=== PATIENT | female | born 1980 | race Caucasian/White ===

== ENCOUNTER → 2018-12-11 13:13 | Outpatient (CLI) | payer OTHER, SELFPAY ==
[2013-11-05 13:46] VITALS: BMI 25.0
[2018-12-16 17:04] LABS: HPV Reflexed? NOT INDICATED
== END ==
PROVIDERS: Visit Provider Obstetrics & Gynecology
DX: Z12.4 Encounter for screening for malignant neoplasm of cervix (principal)
CPT/HCPCS: 87624; 88175; G0145

== ENCOUNTER → 2020-03-30 19:00 | Outpatient (CLI) | payer OTHER, SELFPAY | PROVIDERS: PCP Family Medicine; Visit Provider Family Medicine Geriatric Medicine | DX: Z11.59 Encounter for screening for other viral diseases (principal) | CPT/HCPCS: 87426 ==

== ENCOUNTER 2020-04-15 14:42 | Outpatient (RCR) | payer OTHER, SELFPAY ==
[2013-11-05 13:46] VITALS: BMI 25.0
== END 2020-04-24 23:59 ==
LOC: EMPH 14:42
PROVIDERS: PCP Family Medicine; Referring Provider Family Medicine Geriatric Medicine; Visit Provider Family Medicine Geriatric Medicine
DX: Z03.818 Encounter for observation for suspected exposure to other biological agents ruled out (principal)
CPT/HCPCS: 87426

== ENCOUNTER 2021-01-27 14:30 | Outpatient (RCR) | payer OTHER, SELFPAY ==
--- NOTE | 2021-02-01 15:14 | MASS.EVAL ---
Massage Therapy Evaluation: Initial Evaluation Date: 01/27/2021 SUBJECTIVE: Flora is a 40 year old female who was referred to the [facility] facility for a massotherapy evaluation by Dr. Bai with the diagnosis of low backache and neck pain. She presents today with the symptoms of pain, stiffness and tension in the neck, head, mid back, low back, and hips. Flora reports having a past medical history of neck and back pain. She reports having minimal improvement with exercise and stretching over the last few months. OBJECTIVE: Upon observation Flora has poor posture with her head and shoulders forward from the neutral position in sitting and standing. After examination and palpation, I found Flora to have high muscle tension with tenderness and myofascial restrictions in her sub occipitals, levator scapulae, trapezius, rhomboids, scalenes, and thoracic paraspinals. Her QL?s, lumbar paraspinals, piriformis, glute medius and minimus all were very tight with fascial restrictions, tender points and trigger points. The first treatment consisted of a one hour massage to her full body with myofascial release, muscle stripping, trigger point compression techniques, and cervical manual traction. ASSESSMENT: I feel that Flora is a good candidate for massotherapy at this time. She had a favorable response to the first treatment with reduction in her muscle aches, pain, and tension. She also had improvement in her cervical flexibility and low back flexibility. PLAN: The plan of care was reviewed with the patient. The patient is to be seen on an as needed basis for a total of ten sessions with the recommendation of once every month for a one hour treatment.
--- NOTE | 2021-03-07 13:16 | MASS.DISCH ---
Massage Therapy Discharge Summary: Discharge 03/07/21 Flora was seen for a massotherapy evaluation on 01/27/21 with the diagnosis of low back pain. She was treated with one session of massage therapy. The patient was unable to schedule more visits for the year of 2020. At this time I am discharging the patient from out care at [facility] facility.
== END 2021-01-27 19:00 | disposition home or self-care (01) ==
LOC: MASS 14:30
PROVIDERS: PCP Family Medicine; Referring Provider Family Medicine; Visit Provider Family Medicine
DX: M54.50 Low back pain, unspecified (principal)
CPT/HCPCS: 97124